=== PATIENT | female | born 1975 | race Caucasian/White ===

== ENCOUNTER 2020-05-17 12:30 | Outpatient (CLI) | payer BC, SELFPAY ==
--- NOTE | ~2020-05-17 | XR_ITS ---
EXAMINATION: XR chest 2V DATE: 05/17/2020 12:56 INDICATION: Shortness of breath. TECHNIQUE: Frontal and lateral views of the chest were obtained. COMPARISON: None. FINDINGS: There is mild scarring at the lung apices. No pleural effusion or pneumothorax. The heart s ize is normal. IMPRESSION: 1. Mild scarring at the lung apices. Reviewed, dictated and finalized at location B. [facility]
== END 2020-05-17 12:31 | disposition home or self-care (01) ==
LOC: ANHIMG 12:41
PROVIDERS: PCP Family Medicine; Visit Provider Family Medicine
DX: R06.02 Shortness of breath (principal); R91.8 Other nonspecific abnormal finding of lung field
CPT/HCPCS: 71046

== ENCOUNTER → 2021-02-02 13:13 | Outpatient (CLI) | payer BC, SELFPAY ==
--- NOTE | ~2021-02-02 | XR_ITS ---
XR lumbar spine 6V w bending DATE: 02/02/2021 14:01 INDICATION: Low back pain TECHNIQUE: Neutral, flexion and extension standing lateral views. AP, bilateral oblique and coned lat eral lumbosacral views COMPARISON: None FINDINGS: There is diffuse osteopenia. There is a transitional lumbosacral vertebra (lumbarized S1). No fracture, bone destruction, spondylolisthesis or instability on flexion or extension is evident. No spondylolysis or spondylolisthesis. There is moderately prominent loss of disc space and mild spurring at L5-S1. The sacroiliac joints are intact. IMPRESSION: Lumbarized S1 Loss of height of L5-S1 interspace Reviewed, dictated and finalized at location A.
== END ==
PROVIDERS: PCP Nurse Practitioner Family; Visit Provider Nurse Practitioner Family
DX: M54.5 Low back pain (principal)
CPT/HCPCS: 72114

== ENCOUNTER → 2021-03-17 11:04 | Outpatient (CLI) | payer BC, SELFPAY ==
--- NOTE | ~2021-03-17 | MR_ITS ---
EXAMINATION: MR lumbar spine wo con DATE: 03/17/2021 11:40 INDICATION: Low back pain. TECHNIQUE: Magnetic resonance imaging (MRI) of the lumbar spine was performed without intravenous con trast. Sequences included sagittal T2-weighted FSE, sagittal T2-weighted FS FSE, sagittal T1-weighted FSE, and axial T2-weighted FSE. COMPARISON: Lumbar spine radiographs 02/02/2021, chest 2 views 05/17/2020 FINDINGS: Bone alignment is normal. S1 is a transitional segment. There are Schmorl's nodes at most l evels. There is mild chronic anterior wedging of T12-L2 vertebral bodies. There is moderately decreas ed disc height at L5-S1 with endplate remodeling. The distal spinal cord signal intensity is normal. The conus medullaris is at L1. The following disc levels are specifically discussed: L1-L2: The disc does not extend beyond the endplate margin. There is mild bilateral facet joint osteo arthritis. There is no neural foraminal stenosis. There is no central canal stenosis. L2-L3: The disc does not extend beyond the endplate margin. There is mild right facet joint osteoarth ritis. There is no neural foraminal stenosis. There is no central canal stenosis. L3-L4: The disc is mildly bulging. There is mild bilateral facet joint osteoarthritis. There is mild bilateral neural foraminal stenosis. There is no central canal stenosis. L4-L5: The disc is mildly bulging. There is mild right facet joint osteoarthritis. There is mild bila teral neural foraminal stenosis. There is mild central canal stenosis. L5-S1: The disc is bulging with superimposed right central extrusion with 10 mm inferior extension in to the right subarticular zone. There is mild bilateral facet joint osteoarthritis. There is mild carol ann ateral neural foraminal stenosis. There is mild central canal stenosis. There is mild stenosis of rig ht lateral recess. IMPRESSION: 1. Moderate spondylosis at L5-S1. Reviewed, dictated and finalized at location A.
== END ==
PROVIDERS: PCP Nurse Practitioner Family; Visit Provider Nurse Practitioner Family
DX: R93.7 Abnormal findings on diagnostic imaging of other parts of musculoskeletal system (principal); M54.50 Low back pain, unspecified; M47.816 Spondylosis without myelopathy or radiculopathy, lumbar region
CPT/HCPCS: 72148

== ENCOUNTER → 2021-06-07 02:01 | Outpatient (CLI) | payer BC, SELFPAY ==
[2021-06-07 21:06] LABS: SARS-CoV-2 RNA PCR Positive
== END ==
PROVIDERS: Nurse Practitioner Family; PCP Family Medicine; Visit Provider Nurse Practitioner Family
DX: U07.1 COVID-19 (principal)
CPT/HCPCS: C9803; U0003; U0005